=== PATIENT | female | born 1990 ===

== ENCOUNTER 2019-03-30 15:45 | Emergency (ER) | payer SELFPAY ==
[~2019-03-30] VITALS: Ht 165.1 cm; Wt 0.7 kg
[2019-03-30 17:00] VITALS: BP 116/80
[2019-03-30] MEDS ORDERED: METHOCARBAMOL 500 MG TABLET PO ONE (17:00)
[2019-03-30] MEDS ORDERED: KETOROLAC TROMETHAMINE 10 MG TABLET PO ONE (17:00)
== END 2019-03-30 17:54 | disposition home or self-care (01) ==
LOC: EMS 15:47
DX: S39.012A Strain of muscle, fascia and tendon of lower back, initial encounter (principal); S46.812A Strain of other muscles, fascia and tendons at shoulder and upper arm level, left arm, initial encounter; V49.9XXA Car occupant (driver) (passenger) injured in unspecified traffic accident, initial encounter; Y93.89 Activity, other specified; Y92.488 Other paved roadways as the place of occurrence of the external cause; Y99.8 Other external cause status
CPT/HCPCS: 72100